=== PATIENT | female | born 1955 | race African-American/Black ===

== ENCOUNTER 2021-10-14 14:40 | Inpatient (IN) | payer MEDICARE, OTHER ==
[~2021-10-14] VITALS: Ht 152.4 cm; Wt 68.0 kg
[2021-10-14] MEDS ORDERED: LORAZEPAM 2 MG/1 ML VIAL IM ONE (15:00)
[2021-10-14] MEDS ORDERED: ZIPRASIDONE MESYLATE 20 MG VIAL IM ONE ×2 (15:00→15:33)
[2021-10-14] MEDS ORDERED: LORAZEPAM 2 MG/1 ML VIAL ONE (15:11)
[2021-10-14 16:28] LABS: HEMATOCRIT 38.4 % (31.2-41.9); MEAN CORPUSCULAR HEMOGLOBIN 29.3 uug (24.7-32.8); MEAN CORPUSCULAR VOLUME 88.4 fL (75.5-95.3); PLATELET COUNT (AUTO) 252 K/uL (179-408)
[2021-10-14 16:34] LABS: CARBON DIOXIDE 29 mmol/L (21-32); CHLORIDE 103 mmol/L (98-107); CREATININE 0.7 mg/dL (0.6-1.3); GLUCOSE 98 mg/dL (74-106); POTASSIUM 3.7 mmol/L (3.5-5.1); UREA NITROGEN, BLOOD 17 mg/dL (7-18)
[2021-10-14 16:41] LABS: ALANINE AMINOTRANSFERASE 17 U/L (14-59); ALKALINE PHOSPHATASE 84 U/L (50-136); ASPARTATE AMINOTRANSFERASE 18 U/L (15-37); BILIRUBIN,TOTAL 0.3 mg/dL (0.2-1.0); TOTAL PROTEIN, SERUM 6.9 g/dL (6.4-8.2)
[2021-10-14 16:42] LABS: ETHANOL < 3 MG/DL (0-0)
[2021-10-14] MEDS ORDERED: ACET-2605 PO (16:45)
[2021-10-14] MEDS ORDERED: MAG355OR18 PO (16:45)
[2021-10-14] MEDS ORDERED: GLUC1KIT IM (16:45)
[2021-10-14] MEDS ORDERED: ACET325C7 PO (16:45)
[2021-10-14] MEDS ORDERED: HALO100A2 IM (16:45)
[2021-10-14] MEDS ORDERED: DIVA250T4 PO (16:45)
[2021-10-14] MEDS ORDERED: MAGN400O6 PO (16:45)
[2021-10-14] MEDS ORDERED: METF500S7 PO (16:45)
[2021-10-14] MEDS ORDERED: MULT-213 PO (16:45)
[2021-10-14] MEDS ORDERED: DEXT38GE12 PO (16:45)
[2021-10-14] MEDS ORDERED: OLAN10TA3 PO (16:45)
[2021-10-14] MEDS ORDERED: TEMA15CA PO (16:45)
[2021-10-14] MEDS ORDERED: LORA-259 PO (16:45)
[2021-10-14] MEDS ORDERED: NA P133E RC (16:45)
[2021-10-14] MEDS ORDERED: CALC-1095 PO (16:45)
[2021-10-14] MEDS ORDERED: LEVO50TA8 PO (16:45)
[2021-10-14 17:07] LABS: ACETAMINOPHEN < 2.0 ug/mL (10-30)
[2021-10-14 20:59] LABS: *BILIRUBIN,URIN NEGATIVE (NEGATIVE); *BLOOD, URINE NEGATIVE (NEGATIVE); *KETONES,URINE NEGATIVE (NEGATIVE); *UROBILINOGEN,URINE 0.2 E.U./dl (NORMAL); LEUKOCYTE ESTERASE ,URINE NEGATIVE (NEGATIVE); NITRITE, URINE NEGATIVE (NEGATIVE); UGLUCOSE NEGATIVE (NEGATIVE)
[2021-10-14 21:01] LABS: *CLARITY,URINE CLEAR (CLEAR); *COLOR,URINE STRAW (YELLOW)
[2021-10-14] MEDS ORDERED: MAGNESIUM HYDROXIDE 30 ML LIQUID UDC PO PRN (21:30)
[2021-10-14] MEDS ORDERED: BLOOD SUGAR DIAGNOSTIC 1 EACH STRIP VI ONE (21:30)
[2021-10-14] MEDS ORDERED: MAG HYDROX/AL HYDROX/SIMETH 30 ML LIQUID UDC PO PRN (21:30)
[2021-10-14] MEDS ORDERED: ACETAMINOPHEN 325 MG TABLET PO PRN (21:30)
[2021-10-14 21:45] VITALS: BP 135/71
[2021-10-15] MEDS: CLONAZEPAM 0.5 MG TABLET PO PRN ×2 (03:32→18:29)
[2021-10-15 07:30] VITALS: BP 128/78
[2021-10-15 16:21] VITALS: BP 114/68
[2021-10-15] MEDS: HALOPERIDOL 5 MG TABLET PO SCH (17:00)
[2021-10-15 20:00] VITALS: BP 140/73
[2021-10-15] MEDS: DIVALPROEX 500 MG TABLET.DR PO SCH (20:21)
[2021-10-16] MEDS: TEMAZEPAM 7.5 MG CAPSULE PO PRN (00:01)
[2021-10-16 08:11] VITALS: BP 127/66
[2021-10-16] MEDS: HALOPERIDOL 5 MG TABLET PO SCH ×2 (09:43→17:13)
[2021-10-16] MEDS: DIVALPROEX 500 MG TABLET.DR PO SCH ×2 (09:43→20:03)
[2021-10-16] MEDS ORDERED: HALOPERIDOL DECANOATE 50 MG/1 ML AMPUL IM ONE ×2 (11:00)
[2021-10-16 16:15] VITALS: BP 128/68
[2021-10-16 20:08] VITALS: BP 94/43
[2021-10-17 07:42] VITALS: BP 121/79
[2021-10-17] MEDS: DIVALPROEX 500 MG TABLET.DR PO SCH ×2 (08:25→20:21)
[2021-10-17] MEDS: CLONAZEPAM 0.5 MG TABLET PO PRN (08:25)
[2021-10-17] MEDS: HALOPERIDOL 5 MG TABLET PO SCH ×2 (08:25→17:00)
[2021-10-17 16:11] VITALS: BP 120/80
[2021-10-17 20:08] VITALS: BP 116/72
[2021-10-18] MEDS: TEMAZEPAM 7.5 MG CAPSULE PO PRN (00:12)
[2021-10-18 07:34] VITALS: BP 112/86
[2021-10-18] MEDS ORDERED: TEMAZEPAM 7.5 MG CAPSULE PO PRN (08:45)
[2021-10-18] MEDS: DIVALPROEX 500 MG TABLET.DR PO SCH ×2 (09:10→20:28)
[2021-10-18] MEDS: HALOPERIDOL 5 MG TABLET PO SCH ×2 (09:10→16:29)
[2021-10-18 16:14] VITALS: BP 130/87
[2021-10-18 19:54] VITALS: BP 115/70
[2021-10-18] MEDS: TEMAZEPAM 15 MG CAPSULE PO PRN (20:28)
[2021-10-19 07:30] VITALS: BP 122/79
[2021-10-19] MEDS: HALOPERIDOL 5 MG TABLET PO SCH ×2 (08:16→17:02)
[2021-10-19] MEDS: DIVALPROEX 500 MG TABLET.DR PO SCH ×2 (08:16→22:21)
[2021-10-19 16:00] VITALS: BP 112/59
[2021-10-19] MEDS: CLONAZEPAM 0.5 MG TABLET PO PRN (17:02)
[2021-10-19 20:00] VITALS: BP 135/78
[2021-10-20 07:46] VITALS: BP 122/54
[2021-10-20] MEDS: HALOPERIDOL 5 MG TABLET PO SCH ×2 (07:48→17:11)
[2021-10-20] MEDS: DIVALPROEX 500 MG TABLET.DR PO SCH ×2 (07:48→20:35)
[2021-10-20 16:54] VITALS: BP 137/90
[2021-10-20 20:00] VITALS: BP 111/54
[2021-10-20] MEDS ORDERED: QUETIAPINE FUMARATE 100 MG TABLET PO SCH (21:00)
[2021-10-21 07:39] VITALS: BP 126/69
[2021-10-21] MEDS: DIVALPROEX 500 MG TABLET.DR PO SCH ×2 (08:40→21:00)
[2021-10-21] MEDS: HALOPERIDOL 5 MG TABLET PO SCH ×2 (08:40→17:53)
[2021-10-21] MEDS: CLONAZEPAM 0.5 MG TABLET PO PRN ×2 (10:45→21:58)
[2021-10-21 16:00] VITALS: BP 128/72
[2021-10-21 19:58] VITALS: BP 134/69
[2021-10-21] MEDS ORDERED: QUETIAPINE FUMARATE 100 MG TABLET PO SCH (21:00)
[2021-10-21] MEDS: TEMAZEPAM 15 MG CAPSULE PO PRN (21:58)
[2021-10-22 08:00] VITALS: BP 143/83
[2021-10-22] MEDS: DIVALPROEX 500 MG TABLET.DR PO SCH ×2 (09:33→20:10)
[2021-10-22] MEDS: HALOPERIDOL 5 MG TABLET PO SCH ×2 (09:34→17:24)
[2021-10-22] MEDS ORDERED: diphenhydrAMINE 50 MG/1 ML VIAL IM ONE (10:00)
[2021-10-22] MEDS ORDERED: OLANZAPINE 10 MG VIAL IM ONE (10:00)
[2021-10-22] MEDS: QUETIAPINE FUMARATE 25 MG TABLET PO SCH (14:32)
[2021-10-22 16:00] VITALS: BP 124/78
[2021-10-22] MEDS: QUETIAPINE FUMARATE 200 MG TABLET PO SCH (20:10)
[2021-10-22 21:09] VITALS: BP 134/63
[2021-10-22] MEDS: TEMAZEPAM 15 MG CAPSULE PO PRN (21:09)
[2021-10-22] MEDS: CLONAZEPAM 0.5 MG TABLET PO PRN (22:21)
[2021-10-23] MEDS: CLONAZEPAM 0.5 MG TABLET PO PRN ×2 (04:18→11:15)
[2021-10-23 07:30] VITALS: BP 109/64
[2021-10-23] MEDS: DIVALPROEX 500 MG TABLET.DR PO SCH ×2 (08:35→20:13)
[2021-10-23] MEDS: HALOPERIDOL 5 MG TABLET PO SCH ×2 (08:35→16:55)
[2021-10-23 09:21] LABS: CREATININE 0.7 mg/dL (0.6-1.3); POTASSIUM 4.3 mmol/L (3.5-5.1)
[2021-10-23] MEDS: QUETIAPINE FUMARATE 25 MG TABLET PO SCH (12:24)
[2021-10-23 16:00] VITALS: BP 114/64
[2021-10-23 20:00] VITALS: BP 125/81
[2021-10-23] MEDS: QUETIAPINE FUMARATE 200 MG TABLET PO SCH (20:13)
[2021-10-23] MEDS: TEMAZEPAM 15 MG CAPSULE PO PRN (20:19)
[2021-10-24 07:30] VITALS: BP 124/67
[2021-10-24] MEDS: HALOPERIDOL 5 MG TABLET PO SCH ×2 (08:13→16:36)
[2021-10-24] MEDS: DIVALPROEX 500 MG TABLET.DR PO SCH ×2 (08:14→21:30)
[2021-10-24] MEDS: CLONAZEPAM 0.5 MG TABLET PO PRN (11:29)
[2021-10-24] MEDS: QUETIAPINE FUMARATE 25 MG TABLET PO SCH (12:14)
[2021-10-24 16:00] VITALS: BP 135/73
[2021-10-24 20:02] VITALS: BP 123/78
[2021-10-24] MEDS: QUETIAPINE FUMARATE 200 MG TABLET PO SCH (21:30)
[2021-10-25] MEDS: HALOPERIDOL 5 MG TABLET PO SCH ×2 (09:18→17:36)
[2021-10-25] MEDS: DIVALPROEX 500 MG TABLET.DR PO SCH ×2 (09:18→20:47)
[2021-10-25] MEDS: QUETIAPINE FUMARATE 25 MG TABLET PO SCH ×2 (09:21→17:36)
[2021-10-25 09:38] VITALS: BP 123/67
[2021-10-25 11:43] VITALS: BP 123/67
[2021-10-25 16:12] VITALS: BP 121/47
[2021-10-25] MEDS: QUETIAPINE FUMARATE 200 MG TABLET PO SCH (20:47)
[2021-10-25 22:05] VITALS: BP 130/60
[2021-10-25] MEDS: TEMAZEPAM 15 MG CAPSULE PO PRN (23:17)
[2021-10-26] MEDS: CLONAZEPAM 0.5 MG TABLET PO PRN ×2 (01:59→08:41)
[2021-10-26] MEDS: HALOPERIDOL 5 MG TABLET PO SCH ×2 (08:41→18:02)
[2021-10-26] MEDS: DIVALPROEX 500 MG TABLET.DR PO SCH ×2 (08:41→21:00)
[2021-10-26] MEDS: QUETIAPINE FUMARATE 100 MG TABLET PO SCH ×2 (08:44→18:02)
[2021-10-26] MEDS ORDERED: QUETIAPINE FUMARATE 25 MG TABLET PO SCH (09:00)
[2021-10-26 09:06] VITALS: BP 128/57
[2021-10-26 15:05] VITALS: BP 122/60
[2021-10-26 20:00] VITALS: BP 125/69
[2021-10-26] MEDS: QUETIAPINE FUMARATE 200 MG TABLET PO SCH (21:00)
[2021-10-27] MEDS: QUETIAPINE FUMARATE 100 MG TABLET PO SCH ×2 (08:02→18:16)
[2021-10-27] MEDS: DIVALPROEX 500 MG TABLET.DR PO SCH ×2 (08:02→21:00)
[2021-10-27] MEDS: HALOPERIDOL 5 MG TABLET PO SCH ×2 (08:02→18:16)
[2021-10-27 08:12] VITALS: BP 111/65
[2021-10-27 18:54] VITALS: BP 108/63
[2021-10-27] MEDS: QUETIAPINE FUMARATE 200 MG TABLET PO SCH (21:00)
[2021-10-27 22:15] VITALS: BP 106/65
[2021-10-28] MEDS: QUETIAPINE FUMARATE 100 MG TABLET PO SCH ×2 (09:10→17:52)
[2021-10-28] MEDS: HALOPERIDOL 5 MG TABLET PO SCH ×2 (09:10→17:52)
[2021-10-28 09:40] VITALS: BP 118/74
[2021-10-28] MEDS: QUETIAPINE FUMARATE 200 MG TABLET PO SCH (20:38)
[2021-10-28 20:41] VITALS: BP 106/65
[2021-10-29] MEDS: TEMAZEPAM 15 MG CAPSULE PO PRN (00:47)
[2021-10-29 08:00] VITALS: BP 127/75
[2021-10-29] MEDS: QUETIAPINE FUMARATE 100 MG TABLET PO SCH (09:37)
[2021-10-29] MEDS: HALOPERIDOL 5 MG TABLET PO SCH (09:37)
[2021-10-29 15:35] VITALS: BP 121/55
== END 2021-10-29 17:00 | DRG 885 ==
LOC: ER 14:40 → GPS 21:25 → OBSER 10-15 06:54 → GPS 10-15 07:34
PROVIDERS: ADMIT Nurse Practitioner Psychiatric/Mental Health; ATTEND Registered Nurse
DX: F25.9 Schizoaffective disorder, unspecified (principal); F03.91 Unspecified dementia, unspecified severity, with behavioral disturbance; E11.9 Type 2 diabetes mellitus without complications; I51.9 Heart disease, unspecified; Z79.84 Long term (current) use of oral hypoglycemic drugs; Z79.890 Hormone replacement therapy; Z79.899 Other long term (current) drug therapy; R90.82 White matter disease, unspecified; R79.89 Other specified abnormal findings of blood chemistry
CPT/HCPCS: 36415; 70450; 85025; 93005; 97161; A4663; G0480; J1200; J1631; J2060; J2358; J3486